=== PATIENT | female | born 1960 | race Caucasian/White ===

== ENCOUNTER 2018-10-12 05:09 | Inpatient (IN) ==
[2018-10-05 16:22] LABS: Appearance,Urine CLEAR; Bilirubin,Urine NEG (NEG); Color,Urine YELLOW; Culture Indicated,Urine NO; Glucose,Urine (UA) NEGATIVE (NEG); Ketones,Urine NEG (NEG); Leukocyte Esterase,Urine NEG /uL (NEG); Nitrate,Urine NEG (NEG); Protein,Urine NEG (NEG); Specific Gravity,Urine 1.017 (1.000-1.035); Urine Blood NEG mg/dL (<0.03); Urobilinogen,Urine NEG (NEG)
[2018-10-05 17:13] LABS: Basophils # (Auto) 0 K/mcL (0.0-0.3); Basophils % (Auto) 0.7 % (0.0-2.0); Eosinophils # (Auto) 0.1 K/mcL (0.0-0.7); Eosinophils % (Auto) 0.9 % (0.0-7.0); Granulocytes % (Auto) 62.5 % (38.0-78.0); Hematocrit 43.4 % (36.0-48.0); Hemoglobin 13.7 g/dL (12.0-15.0); Lymphocytes # (Auto) 1.8 K/mcL (1.5-4.8); Lymphocytes % (Auto) 30.6 % (15.5-49.0); Mean Cell Volume 89.1 fL (80.0-100.0); Mean Corpuscular HGB Conc 31.6 g/dL (31.0-36.0); Mean Platelet Volume 10.1 fL (7.4-10.4); Monocytes # (Auto) 0.3 K/mcL (0.1-0.9); Monocytes % (Auto) 5.3 % (1.0-12.0); Platelet Count 323 K/mcL (140-440); RBC 4.87 M/mcL (4.00-5.20); Red Cell Distribution Width 13.7 % (11.5-14.5); WBC 5.9 K/mcL (4.5-11.0)
[2018-10-05 17:57] LABS: Blood Urea Nitrogen 6 mg/dl (6-20); Calcium 9.2 mg/dl (8.6-10.4); Carbon Dioxide 27 mmol/L (22-30); Chloride 100 mmol/L (96-108); Glomerular Filtration Rate 99; Glucose 101 mg/dL (70-105)
[2018-10-05 19:53] LABS: Estimated Average Glucose(eAG) 117 mg/dL; Hemoglobin A1C 5.7 % HGB (4.0-6.0)
[~2018-10-12 05:09] MED LIST: IPRATROPIUM/ALBUTEROL 3 ML AMPUL.NEB NEB PRN; SCOPOLAMINE 1 PATCH PATCH TOPICAL PRN
[2018-10-12] MEDS ORDERED: oxyCODONE 10 MG TAB.ER.12H PO SCH (06:00)
[2018-10-12] MEDS ORDERED: CELECOXIB 200 MG CAPSULE PO SCH (06:00)
[2018-10-12] MEDS ORDERED: 0.9 % SODIUM CHLORIDE 9 ML, KETOROLAC 30 MG, ROPIVACAINE HCL/PF 49.5 ML, EPINEPHrine 0.... IJ SCH (06:00)
[2018-10-12] MEDS ORDERED: ceFAZolin 2 GM in DEXTROSE 5% IN WATER 50 ML IV SCH (06:00)
[2018-10-12] MEDS ORDERED: IPRATROPIUM/ALBUTEROL 3 ML AMPUL.NEB NEB PRN ×2 (07:00→08:53)
[2018-10-12] MEDS ORDERED: SCOPOLAMINE 1 PATCH PATCH TOPICAL PRN (07:00)
[2018-10-12] MEDS ORDERED: PHENYLEPHRINE 10 MG/ML VIAL IV ONE (07:41)
[2018-10-12] MEDS ORDERED: PROPOFOL 200 MG/20 ML VIAL IV ONE (07:41)
[2018-10-12] MEDS ORDERED: DEXAMETHASONE 10 MG/ML VIAL IV ONE (07:41)
[2018-10-12] MEDS ORDERED: ONDANSETRON 4 MG/2 ML VIAL IV ONE (07:41)
[2018-10-12] MEDS ORDERED: LIDOCAINE HCL/PF 100 MG/5 ML SYRINGE IV ONE (07:41)
[2018-10-12] MEDS ORDERED: KETAMINE 100 MG/ML ML IV ONE (07:41)
[2018-10-12] MEDS ORDERED: MIDAZOLAM 2 MG/2 ML VIAL IV ONE (07:41)
[2018-10-12] MEDS ORDERED: TRANEXAMIC ACID 1,000 MG/10 ML VIAL IV ONE ×2 (07:41→09:11)
[2018-10-12] MEDS ORDERED: ROPIVACAINE HCL/PF 20 ML VIAL IJ ONE (07:41)
[2018-10-12] MEDS ORDERED: ACETAMINOPHEN 1,000 MG/100 ML BOTTLE IV ONE (08:53)
[2018-10-12] MEDS ORDERED: ONDANSETRON 4 MG/2 ML VIAL IV PRN ×2 (08:53→09:11)
[2018-10-12] MEDS ORDERED: BENZOCAINE/MENTHOL 1 LOZENGE PO PRN ×2 (08:53→09:11)
[2018-10-12] MEDS ORDERED: NALOXONE HCL 0.4 MG/ML VIAL IV PRN (08:53)
[2018-10-12] MEDS ORDERED: diphenhydrAMINE 50 MG/ML VIAL IV PRN (08:53)
[2018-10-12] MEDS ORDERED: PROMETHAZINE 25 MG/ML VIAL IV PRN (08:53)
[2018-10-12] MEDS ORDERED: fentaNYL 100 MCG/2 ML VIAL IV PRN (08:53)
[2018-10-12] MEDS ORDERED: LACTATED RINGERS 250 ML IV PRN (08:53)
[2018-10-12] MEDS ORDERED: FLUMAZENIL 0.1 MG/ML ML IV PRN (08:53)
[2018-10-12] MEDS ORDERED: LACTATED RINGERS 1,000 ML IV SCH (09:00)
[2018-10-12] MEDS ORDERED: FLEETS ADULT ENEMA PR PRN (09:11)
[2018-10-12] MEDS ORDERED: BISACODYL 10 MG SUPP.RECT PR PRN (09:11)
[2018-10-12] MEDS ORDERED: oxyCODONE/APAP 5/325MG TABLET PO PRN (09:11)
[2018-10-12] MEDS ORDERED: POLYETHYLENE GLYCOL 3350 17 GM PACKET PO PRN (09:11)
[2018-10-12] MEDS ORDERED: MAGNESIUM HYDROXIDE 30 ML ORAL.SUSP PO PRN (09:11)
--- NOTE | 2018-10-12 09:11 | Brief Operative Note ---
Date of procedure: 10/12/18 Pre-op diagnosis: R knee severe DJD Post-op diagnosis: same Procedure: Right robotic assisted total knee arthroplasty Grafts/Implants: Yes (Natalie Triathlon CR 4 femur, 4 tibia, 11mm insert, 33 patella) Anesthesia: spinal, GLMA Findings: severe arthritis Complications: none Surgeon: Gm Barcenas Master Lay Out Specialist: Jamshid Benton Estimated blood loss (cc): 30 Specimens Removed/Pathology: none sent Condition: stable Disposition: PACU
[2018-10-12] MEDS ORDERED: CLOBETASOL PROPIONATE TP PRN (09:17)
[2018-10-12] MEDS ORDERED: OMEPRAZOLE 20 MG CAPSULE PO PRN (09:17)
[2018-10-12] MEDS ORDERED: oxyCODONE/APAP 10/325MG TABLET PO PRN (09:18)
[2018-10-12] MEDS: MEPERIDINE 25 MG/ML SYRINGE IV PRN ×2 (09:42→09:54)
--- NOTE | 2018-10-12 09:49 | Operative Note ---
DATE OF OPERATION: 10/12/2018 PREOPERATIVE DIAGNOSIS: Right knee severe osteoarthritis. POSTOPERATIVE DIAGNOSIS: Right knee severe osteoarthritis. PROCEDURE PERFORMED: Right robotic-assisted total knee arthroplasty placing a size 4 cruciate retaining femoral component, size 4 tibial baseplate, 11 mm X3 tibial insert with a 33 mm patellar button. SURGEON: Gm Barcneas M.D. GEOSPATIAL INTELLIGENCE ANALYST: Prasanth Benton PA-C. The PA's assistance was required for the safe and efficient completion of the entire case. This provider's expertise and technical skill were required throughout the case. The PA assisted with preoperative coordination, intraoperative retraction, wound closure, dressing and splint application, as well as postoperative documentation and care coordination. ANESTHESIA: Spinal plus general. DRAINS: None. SPECIMENS: Bone cuts which were discarded. BLOOD LOSS: 50 mL. COMPLICATIONS: None. POSTOPERATIVE CONDITION: Stable. INDICATIONS FOR SURGERY: This is a 58-year-old female who has had longstanding, progressive worsening right knee pain. Radiographs showed severe ceri-ve-[id number] multi-compartment osteoarthritis. FINDINGS AT SURGERY: As above. Post implantation showed good limb alignment, patellar tracking, and joint stability. PROCEDURE IN DETAIL: The patient had been seen preoperatively and informed consent had been obtained after discussion of risks and benefits of surgery. Risks including, but not limited to, bleeding, possibly requiring transfusion; infection, possibly requiring implant removal, prolonged IV antibiotics; injury to nerves, blood vessels, other surrounding structures; anesthetic risks; incomplete or no resolution of symptoms; stiffness; swelling; pain; instability; DVT and pulmonary embolus risks; and the possibility of needing further revision joint surgery. She understood these risks and wished to proceed. Correct operative site was marked and then patient received spinal anesthesia. She was then taken to the operating room and LMA general given. The right lower extremity was carefully prepped and draped in normal sterile fashion, and a time-out was performed verifying patient name, operative site, and plan. Esmarch was used to exsanguinate the extremity and tourniquet was inflated. Ioban was used to cover all skin surfaces and then a standard midline incision was made with a scalpel through skin and subcutaneous tissue. Hemostasis obtained with Bovie cautery. Irrisept was irrigated and then a medial parapatellar arthrotomy made. Subperiosteal exposure was done of the anterior medial tibia. Anterior horns of the menisci were removed, as well as fat pad. A preliminary patellar cut was made with a freehand technique and a cut protector placed. We placed our femoral and tibial checkpoints. Two stab incisions were made over the femur and two over the tibia and bicortical pins placed and the arrays were connected. Irrisept was irrigated. We then did our hip center of rotation check. Green probe was used to the medial and lateral malleolus and then double-check our checkpoints. Blue probe was used to do our mapping and then a rongeur was used to remove osteophytes. We then checked our flexion-extension gaps. We ended up putting 3 degrees of varus on the tibia and two on the femur to balance out and had to significantly increase her external rotation to aid her patellar tracking. Once we liked the position, we went ahead and used the robotic arm to make our bone cuts. Tibia was prepared externally rotating the trial implant as bone coverage would allow. Boss reamer and keel punch were used to prepare and then a keeled tibial trial placed. Femur was elevated and curved osteotome and curet used to remove posterior osteophytes. Femoral trial was pinned into place and then a 9 mm insert was placed. The knee was taken into extension. We were between 3 and 5 degrees hyperextended. We went ahead and sized the patella to a 33 and medialized this maximally. Holes were drilled and then the patellar button placed. A lateral facetectomy was performed. We checked our patellar tracking and she still wanted to go lateral, so we did a lateral retinacular release with the Bovie, starting at the superior pole of patella approximately 1 cm lateral and extending this down to the tibia. This significantly improved our patellar tracking where it seated flat within the groove. We went ahead and removed trial implants. Definitive implants were opened. We irrigated the joint with Irrisept, after waiting a minute copiously pulse lavaged with saline. CO2 gun was used to clean and dry the cancellous bone surface. Antibiotic Palacos was used to cement the tibia. Excess cement removed. We then cemented the femur and excess cement removed. A 9 insert trial was placed and again the knee was taken into full extension and hyperextended about 5 degrees. We went ahead and cemented the patella. While cement was hardening, we filled the joint with Irrisept. Checkpoints were removed. We went ahead and removed our arrays and the pins. We injected pain cocktail into the pericapsular subcutaneous tissues. Once cement had fully hardened, we flexed the knee up and removed the trial insert. We injected pain cocktail in the posterior capsule. We upsized to an 11 mm insert and irrigated Irrisept on the tray. We impacted the insert. This corrected the hyperextension, so we went ahead and copiously pulse lavaged with saline. The knee was taken into 45 degrees of flexion. Interrupted #2 FiberWire [id number] were used around the superior quadrant of the patella, interrupted #1 Vicryl [id number] around the inferior quadrant, running #1 Vicryl was used for patellar tendon and quad tendon. Final Irrisept irrigation was done, after a minute final pulse lavage, and then 2-0 Monocryl was used for subcutaneous and tirso for skin. Xeroform and sterile dressing were applied. Tourniquet was released. The patient was awakened, extubated, and transferred to recovery in stable condition. BHAVIN:shiloh Job ID: [id number] Doc ID: [id number] Gm Barcenas MD
--- NOTE | 2018-10-12 10:02 | XRay Report ---
CLINICAL INFORMATION: post op COMPARISON: None. FINDINGS: Total knee prostheses is anatomically aligned. No osseous abnormalities. Periarticular gas in soft tissues seen as expected IMPRESSION: Negative Interpreted and Authenticated by: Dominick Claire 10/12/18
[2018-10-12] MEDS: 0.9 % SODIUM CHLORIDE 1,000 ML IV SCH (10:28)
[2018-10-12] MEDS: HYDROmorphone 2 MG/ML VIAL IV PRN ×6 (10:35→20:53)
[2018-10-12] MEDS: KETOROLAC 30 MG/ML VIAL IV SCH ×3 (11:36→23:47)
[2018-10-12] MEDS: 0.9 % SODIUM CHLORIDE 10 ML SYRINGE IV SCH (13:54)
[2018-10-12] MEDS: ceFAZolin 1 GM VIAL IV SCH ×2 (15:05→23:48)
[2018-10-12] MEDS: oxyCODONE/APAP 10/325MG TABLET PO PRN ×2 (17:45→23:09)
[2018-10-12] MEDS ORDERED: SENNOSIDES 1 TABLET PO SCH (21:00)
[2018-10-12] MEDS ORDERED: BACLOFEN 10 MG TABLET PO SCH (21:00)
[2018-10-12] MEDS ORDERED: TEMAZEPAM 15 MG CAPSULE PO SCH (21:00)
[2018-10-12] MEDS ORDERED: AMITRIPTYLINE 10 MG TABLET PO SCH (21:00)
[2018-10-12] MEDS: DOCUSATE SODIUM 100 MG CAPSULE PO SCH (23:09)
[2018-10-12] MEDS: ASPIRIN 81 MG TAB.CHEW PO SCH (23:17)
[2018-10-13] MEDS: HYDROmorphone 2 MG/ML VIAL IV PRN ×3 (00:39→11:26)
[2018-10-13] MEDS: 0.9 % SODIUM CHLORIDE 1,000 ML IV SCH ×3 (02:01→16:16)
[2018-10-13] MEDS: traMADol 50 MG TABLET PO PRN ×2 (02:39→10:12)
[2018-10-13] MEDS: oxyCODONE/APAP 10/325MG TABLET PO PRN ×3 (03:47→13:40)
[2018-10-13] MEDS: 0.9 % SODIUM CHLORIDE 10 ML SYRINGE IV SCH ×3 (03:48→13:41)
[2018-10-13] MEDS: KETOROLAC 30 MG/ML VIAL IV SCH ×2 (06:24→11:27)
--- NOTE | 2018-10-13 07:51 | Discharge Summary ---
Providers - Providers Patient information: Note initiated : 10/13/18 at 7:48 am Service Date, if different from initiated Date: [] Patient: Court Wyatt 58 y/o F admitted on 10/12/18 for Right Total Knee Arthroplasty Daniel. Chief Complaint: [] Discharge date: 10/13/18 Hospitalization Hospital course: Pt was admitted for a R TKA. Pt underwent the procedure on the day of admission. Pt spent 1 night on the floor for IV pain meds, IV abx and PT. Pt discharged on post-op day 1. Will f/u in 2 weeks. Will take ASA 81mg bid for 2 weeks for DVT prophylaxis. Discharge diagnosis: R knee OA Exam - Exam Clean and dry: Yes Weight bearing status: as tolerated Ortho Discharge - TKA - Patient Instructions Diet: Regular Diet Activity: activity as tolerated Total Knee Protocol: For Total Knee: Start ROM BRIGETTE with stationary bike or rocking chair. Work on gaining full extension of knee. Posterior dislocation precautions provided. Hip abductor strengthening and gait training instructions provided. Apply Cryocuff as instructed. Dressing Care: May shower in 2 days - Follow Up Plan Follow Up Appointments: Jamshid Benton PA-C [[employer] Faculty Member] - 10/27/18 11:20 am Disposition: Home, Self-Care Prognosis: Good Rehab Potential: Good Overall status at discharge: patient is progressing back to baseline - Orders For Discharge Prescriptions: Aspirin 81 mg PO BID #30 tab.chew oxyCODONE/APAP [Percocet 10-325Mg] 1 tab PO Q4HP PRN #75 tab PRN Reason: Pain Level 3-6 Pending Studies Resuscitation Status Full Code Diet Regular Diet Start WedOct 12 912 Amitriptyline HCl (Elavil) 30 mg PO [facility] Last Admin: 10/12/18 23:10 Dose: 30 mg Documented by: TAWANNA Aspirin (Aspirin) 81 mg PO BID [facility] Last Admin: 10/12/18 23:17 Dose: 81 mg Documented by: TAWANNA Baclofen (Lioresal) 5 mg PO [facility] Last Admin: 10/12/18 23:11 Dose: 5 mg Documented by: TAWANNA Docusate Sodium (Colace) 100 mg PO BID [facility] Last Admin: 10/12/18 23:09 Dose: 100 mg Documented by: TAWANNA Hydromorphone HCl (Dilaudid) 0 mg IV Q2HP PRN PRN Reason: PAIN LEVEL > 6 Last Admin: 10/13/18 06:25 Dose: 1 mg Documented by: Admin: 10/13/18 00:39 Dose: 1 mg Documented by: Admin: 10/12/18 20:53 Dose: 0.5 mg Documented by: [email or web address] Admin: 10/12/18 16:36 Dose: 1 mg Documented by: [facility] Admin: 10/12/18 15:15 Dose: 1 mg Documented by: [facility] Admin: 10/12/18 11:36 Dose: 1 mg Documented by: [facility] Admin: 10/12/18 10:35 Dose: 0.5 mg Documented by: [facility] Sodium Chloride (Sodium Chloride 0.9%) 1,000 mls @ 100 mls/hr IV .Q10H [facility] Last Admin: 10/13/18 07:00 Dose: Not Given Documented by: Admin: 10/13/18 02:01 Dose: Not Given Documented by: Infusion: 10/12/18 18:00 Dose: 0 mls/hr Documented by: Admin: 10/12/18 10:28 Dose: 100 mls/hr Documented by: [facility] Ketorolac Tromethamine (Toradol) 30 mg IV Q6 [facility] Stop: 10/14/18 06:01 Last Admin: 10/13/18 06:24 Dose: 30 mg Documented by: Admin: 10/12/18 23:47 Dose: 30 mg Documented by: Admin: 10/12/18 17:44 Dose: 30 mg Documented by: Admin: 10/12/18 11:36 Dose: 30 mg Documented by: Jenise Oxycodone/Acetaminophen (Percocet 10-325mg) 1 tab PO Q4HP PRN PRN Reason: PAIN LEVEL 3-6 Last Admin: 10/13/18 03:47 Dose: 1 tab Documented by: Admin: 10/12/18 23:09 Dose: 1 tab Documented by: Admin: 10/12/18 17:45 Dose: 1 tab Documented by: HOMERO Senaraceli (Senokot) 2 tab PO HS EAN Last Admin: 10/12/18 23:08 Dose: 2 tab Documented by: TAWANNA Sodium Chloride (Saline Flush) 10 ml IV Q8 [facility] Last Admin: 10/13/18 06:25 Dose: 10 ml Documented by: Admin: 10/13/18 03:48 Dose: 10 ml Documented by: Admin: 10/12/18 13:54 Dose: Not Given Documented by: HOMERO Temazepam (Restoril) 30 mg PO HS [facility] Last Admin: 10/12/18 23:10 Dose: 30 mg Documented by: TAWANNA Tramadol HCl (Ultram) 50 - 100 mg PO Q8HP PRN PRN Reason: Pain Last Admin: 10/13/18 02:39 Dose: 100 mg Documented by: TAWANNA Shift Summary 10/13/18 03:33 Shift Summary by Vivian Solis Pt is A&O x4. VSS on RA (with exception of BP running a little low at start of shift). Pt had 2 peripheral IV's infiltrate - bruise to LFA and bruise to RFA. New IV to RFA, saline-locked. Pt is up with SBA & FWW. Ambulated in room this shift and was up to BR a few times. Pt was straight cath'd in PACU and once on day shift. Pt was unable to void despite attempting multiple times - continued bladder scanning intermittently. Finally voided 100cc at 2330, but PVR was 421. Navarrete catheter was inserted at 0000 and emptied 625cc from bag. Navarrete catheter still in place. Pt received Percocet x2, Dilaudid x2, Tramadol x1, & scheduled Toradol for pain. Will update with verbal report. Initialized on 10/13/18 03:33 - END OF NOTE
[2018-10-13] MEDS: DOCUSATE SODIUM 100 MG CAPSULE PO SCH (08:10)
[2018-10-13] MEDS: ASPIRIN 81 MG TAB.CHEW PO SCH (08:16)
[2018-10-13] MEDS ORDERED: TAMSULOSIN 0.4 MG CAPSULE PO SCH (09:00)
[2018-10-13] MEDS ORDERED: oxyCODONE/APAP 10/325MG TABLET PO PRN (15:34)
== END 2018-10-13 18:15 | disposition home or self-care (01) | DRG 470 ==
LOC: MEDSUR 05:09
PROVIDERS: ADMIT Orthopaedic Surgery; ATTEND Orthopaedic Surgery